=== PATIENT | male | born 1985 | race African-American/Black ===

== ENCOUNTER 2017-04-04 17:17 | Emergency (ER) | payer OTHER ==
[~2017-04-04] VITALS: Ht 172.7 cm; Wt 119.8 kg
--- NOTE | ~2017-04-04 | EKG ---
[address] [address] ELECTROCARDIOGRAM REPORT Name: DANA CHAVEZ Room #: DEP Michi#: [id number] Admission: 04/04/17 Attend Phys: Discharge: 04/04/17 Date of : 85 Report #: [id number] THIS REPORT FOR: //name// [facility] ED Test Date: 2017-04-04 Test Time: 17:47:06 Pat Name: DANA CHAVEZ Department: Room: Gender: Location Director: : 1985 Requested By: Antonia Mathias Order Number: [id number] MD: Bruno Sandy Measurements Intervals [place] Rate: 100 P: 46 FL: 154 QRS: 67 QRSD: 84 T: 6 QT: 360 QTc: 465 Interpretive Statements Sinus tachycardia No previous ECG available for comparison Electronically Signed On 04-04-2017 22:55:34 CDT by Bruno Sandy [email or web address] <ELECTRONICALLY SIGNED> By: Bruno Sandy MD 04/04/17 [id number] Bruno Sandy MD /EPI
[2017-04-04 18:09] LABS: ABSOLUTE NEUTROPHILS 2.6 thou/uL (1.4-8.2); EOSINOPHILS 3.6 % (0.0-3.0); HEMATOCRIT 41.9 % (42.0-52.0); HEMOGLOBIN 14.5 gm/dL (14.0-18.0); LYMPHOCYTES 36.3 % (24.0-44.0); MCHC 34.5 g/dL (28.0-37.0); MONOCYTES 7.8 % (1.0-8.0); PLATELET COUNT 207 thou/uL (150-400); POLYS 51.3 % (36.0-66.0); RBC 4.66 mil/uL (4.50-6.00)
[2017-04-04 18:11] LABS: MANUAL DIFF NO
[2017-04-04 18:19] LABS: ANION GAP 9 mmol/L (7-16); BUN 13 mg/dL (7-18); CALCIUM 9.4 mg/dL (8.5-10.1); CHLORIDE 99 mmol/L (98-107); CO2 27 mmol/L (21-32); CREATININE 1.1 mg/dL (0.7-1.3); GLUCOSE 105 mg/dL (74-106); POTASSIUM 3.9 mmol/L (3.5-5.1); SODIUM 135 mmol/L (136-145)
[2017-04-04] MEDS ORDERED: TOPROL XL25 MG PO (18:26)
[2017-04-04 18:28] LABS: ALBUMIN 4.7 g/dL (3.4-5.0); ALKALINE PHOSPHATASE 42 U/L (46-116); SGOT 34 U/L (15-37); SGPT 55 U/L (30-65); TOTAL BILIRUBIN 0.3 mg/dL (<0.1-1.0); TOTAL PROTEIN 8.3 g/dL (6.4-8.2); TROPONIN-I < 0.04 ng/mL (<0.04-0.07)
[2017-04-04 18:56] VITALS: BP 171/110
== END 2017-04-04 18:52 | disposition home or self-care (01) ==
LOC: ER 17:17
PROVIDERS: Emergency Medicine
DX: R03.0 Elevated blood-pressure reading, without diagnosis of hypertension (principal); E66.9 Obesity, unspecified; F17.200 Nicotine dependence, unspecified, uncomplicated; F10.99 Alcohol use, unspecified with unspecified alcohol-induced disorder